=== PATIENT | male | born 2000 ===

== ENCOUNTER 2018-03-13 16:48 | Emergency (ER) | payer OTHER ==
[2018-03-13] MEDS ORDERED: diPHENhydraMINE LIQ* 12.5 MG/5 ML UDC PO ONE (19:27)
[2018-03-13 19:38] LABS: ABS Basophils 0.1 10^3/ul (0-0.2); ABS Eosinophils 0 10^3/ul (0-0.6); ABS Lymphocytes 1.4 10^3/ul (1.0-4.8); ABS Monocytes 0.3 10^3/ul (0-0.8); ABS Neutrophils 2.3 10^3/ul (1.5-7.7); ABS Nucleated RBC 0 10^3/ul; Eosinophil % 0.9 % (0-6); Hematocrit 46 % (42-52); Lymphocyte % 33.8 % (25-47); Mean Corpuscular HGB Conc 35 g/dl (31-36); Mean Corpuscular Hemoglobin 31 pg (27-31); Mean Corpuscular Volume 89 fL (80-94); Mean Platelet Volume 6.8 um3 (7.4-10.4); Nucleated Red Blood Cells % 0.5; Platelet Count 318 10^3/ul (150-450); Red Blood Count 5.17 10^6/ul (4.00-5.40); Red Cell Distribution Width 13 % (10.5-15)
[2018-03-13 20:37] LABS: Urine Appearance Cloudy; Urine Blood Negative (Negative); Urine Color Yellow; Urine Ketones Negative (Negative); Urine Protein Negative (Negative); Urine Specific Gravity 1.028 (1.010-1.030); Urine Urobilinogen Positive (Negative)
--- NOTE | 2018-03-13 21:24 | ED ---
HPI Febrile Illness - HPI Summary HPI Summary: Patient complains of cough and fever 2 weeks. Also complains of one episode of swollen lips yesterday morning, and new onset rash on abdomen today. MAXIMUM TEMPERATURE 102.4 last night. Cough is dry worse it night. Patient eating and drinking okay. Swollen left resolved with Benadryl. Rash today on abdomen has improved somewhat with Benadryl given at home. Last antipyretic given at 4 AM. 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 Parents deny ear pulling, any indication of pain, N/V, diarrhea, change in urine, SOB, EMS. Medical history is hypothyroid. - History of Current Complaint Chief Complaint: EDFluSymptoms Time Seen by Provider: 03/13/18 18:46 Hx Obtained From: Patient, Family/Mdm Sr Onset/Duration: Started Weeks Ago Timing: Intermittent Current Severity: None Pain Intensity: 0 Pain Scale Used: 0-10 Numeric Aggravating Factors: Unknown Alleviating Factors: OTC Medicine Associated Signs and Symptoms: Cough, Rash - Allergy/Home Medications Allergies/Adverse Reactions: Allergies Allergy/AdvReac Type Severity Reaction Status Date / Time No Known Allergies Allergy Verified 03/13/18 16:58 Home Medications: Home Medications Levothyroxine TAB* [Synthroid TAB*] 75 mcg PO DAILY 03/13/18 [History Confirmed 03/13/18] Methylphenidate TAB* [Ritalin TAB*] 20 mg PO 0700,1400 03/13/18 [History Confirmed 03/13/18] PMH/Surg Hx/FS Hx/Imm Hx Endocrine/Hematology History: Denies: Hx Anticoagulant Therapy Cardiovascular History: Denies: Hx Cardiac Arrest History: Denies: Hx Dialysis Opthamlomology History: Denies: Hx Contacts or Glasses Infectious Disease History: No Infectious Disease History: Denies: Traveled Outside the [place] in Last 30 Days - Social History Alcohol Use: None Substance Use Type: Reports: None Smoking Status (MU): Never Smoked Tobacco Review of Systems Positive: Fever Eyes: Negative Positive: Other Cardiovascular: Negative Respiratory: Negative Gastrointestinal: Negative Genitourinary: Negative Musculoskeletal: Negative Positive: Rash Neurological: Negative Psychological: Normal All Other Systems Reviewed And Are Negative: Yes Physical Exam - Summary Physical Exam Summary: Tympanic membranes erythematous Bilaterally. Oropharyngeal exam unremarkable. Lips normal size. No facial or oral swelling noted. Abdominal rash present. No rash noted anywhere else. Patient appears comfortable. No work of breathing. Moves all limbs freely. Abdomen soft nontender. Lung sounds clear to auscultation bilaterally. Vital Signs On Initial Exam: Initial Vitals Temp Pulse Resp BP Pulse Ox 98.4 F 84 16 115/65 99 03/13/18 16:55 03/13/18 16:55 03/13/18 16:55 03/13/18 16:55 03/13/18 16:55 Diagnostics - Vital Signs Vital Signs Temp Pulse Resp BP Pulse Ox 03/13/18 21:04 82 124/79 97 03/13/18 21:00 76 99 03/13/18 20:34 79 116/81 99 03/13/18 20:04 85 125/88 98 03/13/18 20:00 77 99 03/13/18 19:34 78 126/89 100 03/13/18 19:04 74 119/70 99 03/13/18 19:03 72 96 03/13/18 16:55 98.4 F 84 16 115/65 99 - Laboratory Lab Results: Lab Results 03/13/18 03/13/18 03/13/18 Range/Units 19:29 19:29 20:12 WBC 4.0 (3.5-10.8) 10^3/ul RBC 5.17 (4.00-5.40) 10^6/ul Hgb 16.0 (14.0-18.0) g/dl Hct 46 (42-52) % MCV 89 (80-94) fL MCH 31 (27-31) pg MCHC 35 (31-36) g/dl RDW 13 (10.5-15) % Plt Count 318 (150-450) 10^3/ul MPV 6.8 L (7.4-10.4) um3 Neut % (Auto) 56.8 (38-83) % Lymph % (Auto) 33.8 (25-47) % [place] % (Auto) 7.0 (0-7) % Eos % (Auto) 0.9 (0-6) % Baso % (Auto) 1.5 (0-2) % Absolute Neuts (auto) 2.3 (1.5-7.7) 10^3/ul Absolute Lymphs (auto) 1.4 (1.0-4.8) 10^3/ul Absolute Monos (auto) 0.3 (0-0.8) 10^3/ul Absolute Eos (auto) 0 (0-0.6) 10^3/ul Absolute Basos (auto) 0.1 (0-0.2) 10^3/ul Absolute Nucleated RBC 0 10^3/ul Nucleated RBC % 0.5 Sodium 136 (135-145) mmol/L Potassium 4.0 (3.5-5.0) mmol/L Chloride 103 (101-111) mmol/L Carbon Dioxide 27 (22-32) mmol/L Anion Gap 6 (2-11) mmol/L BUN 20 (6-24) mg/dL Creatinine 0.87 (0.67-1.17) mg/dL Est GFR ( Amer) 136.8 (>60) Est GFR (Non-Af Amer) 113.0 (>60) BUN/Creatinine Ratio 23.0 H (8-20) Glucose 93 (70-100) mg/dL Lactic Acid 1.1 (0.5-2.0) mmol/L Calcium 8.8 (8.6-10.3) mg/dL Total Bilirubin 0.40 (0.2-1.0) mg/dL AST 24 (13-39) U/L ALT 29 (7-52) U/L Alkaline Phosphatase 61 (34-104) U/L C-Reactive Protein 60.44 H (<8.01) mg/L Total Protein 6.7 (6.4-8.9) g/dL Albumin 4.1 (3.2-5.2) g/dL Globulin 2.6 (2-4) g/dL Albumin/Globulin Ratio 1.6 (1-3) Urine Color Urine Appearance Urine pH (5-9) Ur Specific [place] (1.010-1.030) Urine Protein (Negative) Urine Ketones (Negative) Urine Blood (Negative) Urine Nitrate (Negative) Urine Bilirubin (Negative) Urine Urobilinogen (Negative) Ur Leukocyte Esterase (Negative) Urine Glucose (Negative) Influenza A (Rapid) (Negative) Influenza B (Rapid) (Negative) Group A Strep Rapid (Negative) 03/13/18 03/13/18 03/13/18 Range/Units 20:28 20:36 20:44 WBC (3.5-10.8) 10^3/ul RBC (4.00-5.40) 10^6/ul Hgb (14.0-18.0) g/dl Hct (42-52) % MCV (80-94) fL MCH (27-31) pg MCHC (31-36) g/dl RDW (10.5-15) % Plt Count (150-450) 10^3/ul MPV (7.4-10.4) um3 Neut % (Auto) (38-83) % Lymph % (Auto) (25-47) % [place] % (Auto) (0-7) % Eos % (Auto) (0-6) % Baso % (Auto) (0-2) % Absolute Neuts (auto) (1.5-7.7) 10^3/ul Absolute Lymphs (auto) (1.0-4.8) 10^3/ul Absolute Monos (auto) (0-0.8) 10^3/ul Absolute Eos (auto) (0-0.6) 10^3/ul Absolute Basos (auto) (0-0.2) 10^3/ul Absolute Nucleated RBC 10^3/ul Nucleated RBC % Sodium (135-145) mmol/L Potassium (3.5-5.0) mmol/L Chloride (101-111) mmol/L Carbon Dioxide (22-32) mmol/L Anion Gap (2-11) mmol/L BUN (6-24) mg/dL Creatinine (0.67-1.17) mg/dL Est GFR ( Amer) (>60) Est GFR (Non-Af Amer) (>60) BUN/Creatinine Ratio (8-20) Glucose (70-100) mg/dL Lactic Acid (0.5-2.0) mmol/L Calcium (8.6-10.3) mg/dL Total Bilirubin (0.2-1.0) mg/dL AST (13-39) U/L ALT (7-52) U/L Alkaline Phosphatase (34-104) U/L C-Reactive Protein (<8.01) mg/L Total Protein (6.4-8.9) g/dL Albumin (3.2-5.2) g/dL Globulin (2-4) g/dL Albumin/Globulin Ratio (1-3) Urine Color Yellow Urine Appearance Cloudy Urine pH 5.0 (5-9) Ur Specific [place] 1.028 (1.010-1.030) Urine Protein Negative (Negative) Urine Ketones Negative (Negative) Urine Blood Negative (Negative) Urine Nitrate Negative (Negative) Urine Bilirubin Negative (Negative) Urine Urobilinogen Positive A (Negative) Ur Leukocyte Esterase Negative (Negative) Urine Glucose Negative (Negative) Influenza A (Rapid) Negative (Negative) Influenza B (Rapid) Negative (Negative) Group A Strep Rapid Negative (Negative) Result Diagrams: 03/13/18 19:29 03/13/18 19:29 Lab Statement: Any lab studies that have been ordered have been reviewed, and results considered in the medical decision making process. - Radiology cxr Xray Interpretation: No Acute Changes Radiology Interpretation Completed By: ED Physician Course/Dx - Course Course Of Treatment: Patient complains of cough and fever 2 weeks. Also complains of one episode of swollen lips yesterday morning, and new onset rash on abdomen today. MAXIMUM TEMPERATURE 102.4 last night. Cough is dry worse it night. Patient eating and drinking okay. Swollen left resolved with Benadryl. Rash today on abdomen has improved somewhat with Benadryl given at home. Last antipyretic given at 4 AM. 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 Parents deny ear pulling, any indication of pain, N/V, diarrhea, change in urine, SOB, EMS. Medical history is hypothyroid. Physical exam: Tympanic membranes erythematous Bilaterally. Oropharyngeal exam unremarkable. Lips normal size. No facial or oral swelling noted. Abdominal rash present. No rash noted anywhere else. Patient appears comfortable. No work of breathing. Moves all limbs freely. Abdomen soft nontender. Lung sounds clear to auscultation bilaterally. Vital signs within normal limits. Labs unremarkable. Flu and strep negative. Chest x-ray negative. Prednisone, Pepcid, Benadryl here for rash as well as azithromycin for cough. Rx for prednisone 60 mg by mouth 5 days. Follow-up with primary care. - Diagnoses Provider Diagnoses: Fever, Allergic reaction, Rash, Cough Discharge - Sign-Out/Discharge Documenting (check all that apply): Patient Departure - Discharge Plan Condition: Stable Disposition: HOME Prescriptions: Azithromycin 250 mg PO DAILY 4 Days #4 tablet predniSONE TAB* [Deltasone 20 MG TAB*] 60 mg PO DAILY 5 Days #15 tab Patient Education Materials: Urticaria (ED), Upper Respiratory Infection (ED) Referrals: No Primary Care Phys,NOPCP [Primary Care Provider] - Additional Instructions: Take prednisone as directed. May add Benadryl 25 mg by mouth every 6 hours. Follow-up with primary care. Return to the ED for any new or worsening symptoms - Billing Disposition and Condition Condition: STABLE Disposition: Home
[2018-03-13] MEDS ORDERED: predniSONE TAB* 20 MG PO ONE (21:48)
[2018-03-13] MEDS ORDERED: Famotidine TAB* 20 MG PO ONE (21:48)
[2018-03-13] MEDS ORDERED: Azithromycin TAB* 250 MG PO ONE (21:50)
[2018-03-13 22:44] VITALS: BP 125/83
--- NOTE | 2018-03-14 07:39 | RAD ---
INDICATION: Fever and cough. COMPARISON: There are no relevant prior studies available for comparison. TECHNIQUE: A portable view of the chest was obtained. FINDINGS: Cardiac and mediastinal contours appear to be within normal limits. The lungs are underinflated. There are small infiltrates at both lung bases suggestive of atelectasis less likely pneumonia. IMPRESSION: LOW LUNG VOLUMES AND SMALL BIBASILAR INFILTRATES SUGGESTIVE OF ATELECTASIS LESS LIKELY PNEUMONIA. R2
--- NOTE | 2018-03-14 18:21 | ED ---
Progress - Progress Note Progress Note: Final radiology review read reveals "impression: Low lung volumes and small bibasilar infiltrates suggestive of atelectasis less likely pneumonia". Patient 's x-ray was read as "negative" in the document however patient was started on Zithromax as well as other supportive respiratory treatments. No change in treatment at this time. Course/Dx - Course Course Of Treatment: Patient complains of cough and fever 2 weeks. Also complains of one episode of swollen lips yesterday morning, and new onset rash on abdomen today. MAXIMUM TEMPERATURE 102.4 last night. Cough is dry worse it night. Patient eating and drinking okay. Swollen left resolved with Benadryl. Rash today on abdomen has improved somewhat with Benadryl given at home. Last antipyretic given at 4 AM. 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 Parents deny ear pulling, any indication of pain, N/V, diarrhea, change in urine, SOB, EMS. Medical history is hypothyroid. Physical exam: Tympanic membranes erythematous Bilaterally. Oropharyngeal exam unremarkable. Lips normal size. No facial or oral swelling noted. Abdominal rash present. No rash noted anywhere else. Patient appears comfortable. No work of breathing. Moves all limbs freely. Abdomen soft nontender. Lung sounds clear to auscultation bilaterally. Vital signs within normal limits. Labs unremarkable. Flu and strep negative. Chest x-ray negative. Prednisone, Pepcid, Benadryl here for rash as well as azithromycin for cough. Rx for prednisone 60 mg by mouth 5 days. Follow-up with primary care. - Diagnoses Provider Diagnoses: Fever, Allergic reaction, Rash, Cough Discharge - Sign-Out/Discharge Documenting (check all that apply): Post-Discharge Follow Up - Discharge Plan Condition: Stable Disposition: HOME Prescriptions: Azithromycin 250 mg PO DAILY 4 Days #4 tablet predniSONE TAB* [Deltasone 20 MG TAB*] 60 mg PO DAILY 5 Days #15 tab Patient Education Materials: Urticaria (ED), Upper Respiratory Infection (ED) Referrals: No Primary Care Phys,NOPCP [Primary Care Provider] - Additional Instructions: Take prednisone as directed. May add Benadryl 25 mg by mouth every 6 hours. Follow-up with primary care. Return to the ED for any new or worsening symptoms - Billing Disposition and Condition Condition: STABLE Disposition: Home
== END 2018-03-13 22:40 | disposition home or self-care (01) ==
LOC: ED 16:48
DX: T78.40XA Allergy, unspecified, initial encounter (principal); X58.XXXA Exposure to other specified factors, initial encounter; R50.9 Fever, unspecified; R21 Rash and other nonspecific skin eruption; R05 Cough
CPT/HCPCS: 36415; 71045; 80053; 81003; 83605; 85025; 86140; 87040; 87651; 99284; A9270-GY; J7512